=== PATIENT | male | born 1975 | race Caucasian/White ===

== ENCOUNTER 2020-07-27 16:27 | Observation (INO) | payer SELFPAY ==
[2020-07-27] MEDS ORDERED: KETOROLAC TROMETHAMINE 60 MG/2 ML VIAL IM ONE (18:03)
[2020-07-27 19:46] LABS: BASO % 0.5 % (0-2.0); EOS % 7.6 % (0-4.5); HEMATOCRIT 45.2 % (35.4-49); HEMOGLOBIN 15.1 GM/dL (11.7-16.9); LYMPH % 31.6 % (8-40); MCH 28.1 pg (25.7-33.7); MCHC 33.5 g/dl (32.0-35.9); MEAN CELL VOLUME 83.9 fl (80-96); MEAN PLT VOLUME 10.1 fl (7.5-11.1); MONO % 8.8 % (3.8-10.2); NEUT % 51.5 % (42.8-82.8); PLATELET COUNT 152 K/MM3 (134-434); RBC 5.39 M/mm3 (4.00-5.60); RDW 13.8 % (11.9-15.9); WHITE BLOOD COUNT 5.6 K/mm3 (4.0-10.0)
[2020-07-27 20:33] LABS: POTASSIUM 3.8 mmol/L (3.5-5.1)
[2020-07-27 20:38] LABS: CALCIUM 8.7 mg/dL (8.5-10.1)
[2020-07-27 20:39] LABS: ALBUMIN 3.8 g/dl (3.4-5.0); BLOOD UREA NITROGEN 14.3 mg/dL (7-18)
[2020-07-27 20:42] LABS: CREATININE 0.7 mg/dL (0.55-1.3)
[2020-07-27 20:43] LABS: BILIRUBIN,TOTAL 0.3 mg/dL (0.2-1); TOT PROT 6.8 g/dl (6.4-8.2)
[2020-07-27] MEDS ORDERED: morphine CARPU-JECT 4 MG/1 ML DISP.SYRIN IM ONE (20:45)
[2020-07-27] MEDS ORDERED: morphine SULFATE 4 MG/ML VIAL ONE (21:02)
[2020-07-28 07:50] LABS: HEMATOCRIT 44.6 % (35.4-49); MCH 28.4 pg (25.7-33.7); MCHC 33.7 g/dl (32.0-35.9); MEAN CELL VOLUME 84.4 fl (80-96); PLATELET COUNT 137 K/MM3 (134-434); RBC 5.29 M/mm3 (4.00-5.60); RDW 14.4 % (11.9-15.9); WHITE BLOOD COUNT 6.9 K/mm3 (4.0-10.0)
[2020-07-28 07:55] LABS: POTASSIUM 4.2 mmol/L (3.5-5.1)
[2020-07-28 08:01] LABS: CALCIUM 8.7 mg/dL (8.5-10.1)
[2020-07-28 08:02] LABS: BLOOD UREA NITROGEN 14.8 mg/dL (7-18)
[2020-07-28 08:06] LABS: CREATININE 0.9 mg/dL (0.55-1.3)
[2020-07-28] MEDS: ENOXAPARIN NA (PORCINE) 40 MG/0.4 ML DISP.SYRIN SQ SCH (10:30)
[2020-07-28] MEDS ORDERED: CYCLOBENZAPRINE HCL 10 MG TABLET (FP) PO PRN (11:06)
[2020-07-28] MEDS ORDERED: CYCLOBENZAPRINE HCL 10 MG TABLET (FP) ONE (12:11)
[2020-07-28] MEDS ORDERED: KETOROLAC TROMETHAMINE 15 MG/ML VIAL ONE (12:12)
[2020-07-28] MEDS: KETOROLAC TROMETHAMINE 15 MG/ML VIAL IVPUSH PRN (12:40)
[2020-07-28] MEDS ORDERED: FAMOTIDINE 20 MG TABLET ONE (16:41)
[2020-07-29] MEDS: KETOROLAC TROMETHAMINE 15 MG/ML VIAL IVPUSH PRN (01:08)
[2020-07-29 02:40] VITALS: BMI 24.2
[2020-07-29] MEDS: LIDOCAINE 5% TOPICAL PATCH TP SCH (10:14)
[2020-07-29] MEDS: ENOXAPARIN NA (PORCINE) 40 MG/0.4 ML DISP.SYRIN SQ SCH (10:15)
[2020-07-29] MEDS: CYCLOBENZAPRINE HCL 10 MG TABLET (FP) PO SCH ×2 (14:41→21:27)
[2020-07-29] MEDS ORDERED: LIDOCAINE PATCH REMOVAL MC SCH (22:00)
[2020-07-30] MEDS ORDERED: diazePAM 5 MG TABLET PO ONE (09:48)
[2020-07-30] MEDS: LIDOCAINE 5% TOPICAL PATCH TP SCH (10:00)
[2020-07-30] MEDS: ENOXAPARIN NA (PORCINE) 40 MG/0.4 ML DISP.SYRIN SQ SCH (10:01)
[2020-07-30] MEDS ORDERED: TIZANIDINE HCL 2 MG TABLET PO PRN (11:34)
[2020-07-30] MEDS ORDERED: diazePAM 5 MG TABLET PO PRN (14:00)
[2020-07-30 15:42] VITALS: BP 128/43; PULSE 71; TEMP 98.3
== END 2020-07-30 18:21 | disposition home or self-care (01) ==
LOC: JER 16:27 → INTOOBSV 23:26 → UNDOADMOB 23:26 → JERBED 23:26 → J6S 07-28 20:13 → JERBED 07-28 20:13 → J6S 07-28 20:13
PROVIDERS: ADMIT Hospitalist; ATTEND Internal Medicine
PROC: 3E023GC Introduction of Other Therapeutic Substance into Muscle, Percutaneous Approach (ICD-10-PCS; principal; 2020-07-27)
PROC: 3E0233Z Introduction of Anti-inflammatory into Muscle, Percutaneous Approach (ICD-10-PCS; 2020-07-27)
PROC: 3E0333Z Introduction of Anti-inflammatory into Peripheral Vein, Percutaneous Approach (ICD-10-PCS; 2020-07-27)
PROC: 3E023NZ Introduction of Analgesics, Hypnotics, Sedatives into Muscle, Percutaneous Approach (ICD-10-PCS; 2020-07-27)
DX: M54.5 Low back pain (principal); Z29.9 Encounter for prophylactic measures, unspecified
CPT/HCPCS: 36415; 72100-TC-FY; 72131-TC; 80048; 80053; 85025; 85027; 97116-GP; 97161-GP; 99285-25; C9803; G0378; U0003